=== PATIENT | male | born 1950 | race Caucasian/White ===

== ENCOUNTER 2019-11-22 13:19 | Inpatient (IN) | payer MEDICARE, BC ==
[2019-11-22] VITALS (259 sets, daily range): BP systolic 105–122; BP diastolic 67–691; PULSE 58–88; TEMP 97.6–97.8; O2SAT 70–99
[~2019-11-22] VITALS: Ht 177.8 cm; Wt 60.5 kg
[2019-11-22 13:48] LABS: BASO # 0.1 (0.0-0.2); BASO % 0.6 % (0.0-2.0); EOS # 0.1 (0.0-0.7); EOS % 1.1 % (0-4.0); GRAN % 59.3 % (42.2-75.2); HEMOGLOBIN 12.4 g/dl (13.5-18.0); LYMPH # 2.5 (1.2-3.4); LYMPH % 29.2 % (20.0-51.0); MEAN CELL VOLUME 88 fl (80.0-100.0); MEAN CORPUSCULAR HEMOGLOBIN 30 pg (27.0-31.0); MEAN CORPUSCULAR HGB CONC 34 g/dl (33.0-37.0); MEAN PLATELET VOLUME 10.8 fl (7.4-10.4); MONO # 0.8 (0.1-0.6); MONO % 9.4 % (1.7-9.3); PLATELET COUNT 222 K/mm3 (130-400); RED BLOOD COUNT 4.18 M/mm3 (4.20-5.60); REDCELL DISTRIBUTION WIDTH-CV 13.2 % (11.5-14.5)
[2019-11-22 13:54] LABS: HEMATOCRIT 36.9 % (42.0-52.0)
[2019-11-22 13:58] LABS: ALANINE AMINOTRANSFERASE 41 U/L (4-49); ALBUMIN 4.4 gm/dL (3.5-5.0); ALKALINE PHOSPHATASE 67 U/L (50-136); ANION GAP 8 mmol/L (7-16); AST,SGOT 55 U/L (15-37); BILIRUBIN,TOTAL 1.1 mg/dL (0.0-1.0); BLOOD UREA NITROGEN 8 mg/dL (9-20); C-REACTIVE PROTEIN < 0.5 mg/dL (0.0-0.9); CALCIUM 9.6 mg/dL (8.4-10.2); CARBON DIOXIDE 25 mmol/L (22-30); CHLORIDE 99 mmol/L (98-107); CREATINE KINASE 629 U/L (55-170); CREATININE, serum 0.82 (0.66-1.25); GLUCOSE 102 mg/dL (74-106); PHOSPHOROUS 2.9 mg/dL (2.5-4.5); POTASSIUM 3.8 mmol/L (3.4-5.0); SODIUM 132 mmol/L (137-145); TOTAL PROTEIN 7.1 gm/dL (6.4-8.2)
[2019-11-22] MEDS ORDERED: ZOLOFT 25MG25 MG PO (14:07)
[2019-11-22 14:08] LABS: ERYTHROCYTE SEDIMENTATION RATE 1 mm/hr (0-30)
[2019-11-22] MEDS ORDERED: REMERON45 MG PO (14:08)
[2019-11-22] MEDS ORDERED: NAMENDA5 MG PO (14:09)
[2019-11-22] MEDS ORDERED: NORVASC 10MG10 MG PO (14:09)
[2019-11-22] MEDS ORDERED: KLONOPIN 0.5MG0.5 MG PO (14:10)
[2019-11-22] MEDS ORDERED: ARICEPT 5MG PO (14:10)
[2019-11-22] MEDS ORDERED: MEVACOR 20M20 MG/TAB PO (14:10)
[2019-11-22 15:35] LABS: COLLECTION METHOD CLEAN CATCH
[2019-11-22 15:42] LABS: PH 8 (5-8); SQUAMOUS EPITHELIAL None Seen /hpf; URINE APPEARANCE Clear; URINE BACTERIA None Seen /hpf; URINE BILIRUBIN Negative (NEGATIVE); URINE BLOOD Negative (NEGATIVE); URINE COLOR Straw; URINE GLUCOSE Negative (NEGATIVE); URINE KETONE Negative (NEGATIVE); URINE LEUKOCYTE ESTERASE Negative (NEGATIVE); URINE NITRATE Negative (NEGATIVE); URINE PROTEIN(semi-quant) Negative (NEGATIVE); URINE RBC None Seen /hpf; URINE UROBILINOGEN Negative (NEGATIVE)
[2019-11-22 18:29] LABS: ARTERIAL BLD GAS O2 SATURATION 95.3 % (92-100); ARTERIAL BLD GAS TCO2 CT 23.8; ARTERIAL BLOOD GAS BASE EXCESS -1.8 (-2-2); ARTERIAL BLOOD GAS HCO3 22.7 meq/L (22-26); ARTERIAL BLOOD GAS PCO2 37.6 mmHg (35-45); ARTERIAL BLOOD GAS PO2 79.8 mmHg (80-100)
--- NOTE | 2019-11-22 18:35 | NUR ---
PT TRANSFERRED VIA BED TO ICU ROOM 5 BY MERRILL TURK, CONSULTING SERVICES PROJECT MANAGER, AND MISAEL TURK. AT BEDSIDE. PATIENT LETHARGIC AND AROUSES SLIGHLTY TO PHYSICAL STIMULI.
[2019-11-22] MEDS ORDERED: ZYPREXA2.5 MG PO (18:44)
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
--- NOTE | 2019-11-22 20:54 | NUR ---
Patient woke up very agitated and began getting aggressive with staff. Patient is trying to pull all monitoring equipment off, is being non-compliant. No PRN's can be given at this time. ABHIJIT Ramirez, was called and she gave an order to give 2mg IV haldol and 0.5mg IV ativan, and to call her back if that does not calm patient down.
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
--- NOTE | 2019-11-22 22:00 | NUR ---
ABHIJIT Ramirez at bedside, ordered a bladder scan. RNshruti, bladder scanned patient and it revealed greatewr than 999ml. Called Ashley and she said to place nguyen catheter. After nguyen catheter placed patient fell asleep.
--- NOTE | 2019-11-22 22:15 | NUR ---
2 point soft restraints placed on ankles. Patient trying to move legs out of bed and nguyen catheter needs to be placed. Ashley called and notified.
--- NOTE | 2019-11-22 23:17 | NUR ---
Ashley called for patient having a few low BP's with MAPs in the 60's. IVF were ordered and Ashley said ok to give 500ml bolus.
[2019-11-23] VITALS (472 sets, daily range): BP systolic 82–168; BP diastolic 52–118; PULSE 48–103; TEMP 97.2–97.7; O2SAT 87–100
[2019-11-23] LABS: TRICYCLIC ANTIDEPRESS URINE NEGATIVE
[2019-11-23 05:41] LABS: HSV SOURCE BLOOD (())
[2019-11-23 05:58] LABS: BASO % 0.4 % (0.0-2.0); EOS # 0.1 (0.0-0.7); EOS % 1.1 % (0-4.0); GRAN # 5.2 (1.4-6.5); GRAN % 64.7 % (42.2-75.2); HEMOGLOBIN 12.8 g/dl (13.5-18.0); LYMPH % 25.4 % (20.0-51.0); MEAN CELL VOLUME 89 fl (80.0-100.0); MEAN CORPUSCULAR HEMOGLOBIN 30 pg (27.0-31.0); MEAN CORPUSCULAR HGB CONC 34 g/dl (33.0-37.0); MEAN PLATELET VOLUME 10.7 fl (7.4-10.4); MONO # 0.6 (0.1-0.6); MONO % 8.1 % (1.7-9.3); PLATELET COUNT 193 K/mm3 (130-400); RED BLOOD COUNT 4.26 M/mm3 (4.20-5.60); REDCELL DISTRIBUTION WIDTH-CV 13.4 % (11.5-14.5)
[2019-11-23 06:13] LABS: CALCIUM 8.9 mg/dL (8.4-10.2); CREATININE, serum 0.59 (0.66-1.25); POTASSIUM 3.7 mmol/L (3.4-5.0)
--- NOTE | 2019-11-23 07:00 | NUR ---
Bedside report received from ROSALEE Ortiz. Patient currently sleeping while in 4 point soft restraints. VS WNL. Sitter here with pt. Care take over at this time.
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
--- NOTE | 2019-11-23 10:01 | NUR ---
here to see patient. She is updated on the plan of care. Questions answered as best I can. Dr. Reyez on unit rounding. He will see the patient soon.
--- NOTE | 2019-11-23 10:45 | NUR ---
This RN is now at bedside monitoring patient consistently.
--- NOTE | 2019-11-23 12:25 | NUR ---
DEVI met the patient and the patient's , Marilee to complete initial intake. The patient is confused and is in restraints at this time. The patient lives in [place] with Marilee. The patient does not use DME and is independent with ADLs with Marilee standing by to provide support if needed. The patient's PCP is Dr. Rogers and patient receives medications from [facility]. The patient has DPOA-HC. Marilee provided a copy and it was placed in the chart. The patient is needing geriatric psychiatry unit placement. The families [facility] preference is [facility] in [place] and second is [facility] in [facility]. Referrals sent. DEVI informed Marilee that other referrals would be sent as well. DEVI faxed referrals to [facility] in [place] and [facility]. Awaiting responses. Marilee states that family would rather not send a referral to the [facility] in [place] or [facility] in [place]. Marilee would also like DEVI to keep her son Chito informed. DEVI contacted Zara with [facility]. She states they do not have any male beds at this time but will possibly have a discharge 11/24 and would have a bed available for admission 11/24 or 11/25. DEVI updated Chito and will inform Marilee. Will continue to monitor.
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
--- NOTE | 2019-11-23 14:37 | NUR ---
Xin with [facility] reports they are at capacity at this time. They will possibly have a bed available by the end of the week. [facility] is requiring a negative Covid-19 test to admit the patient. DEVI will continue to follow.
--- NOTE | 2019-11-23 15:30 | NUR ---
Patient's sedation placed on standby at this time due to vital signs and RASS indicating patient is too sedated at this time. ROSALEE Low made aware.
--- NOTE | 2019-11-23 15:49 | NUR ---
Shweta from [facility] in [place] states they can accept the patient on 11/23 as long as the nguyen is taken out and the patient voids at least once on his own. SW informed the family and the team. Will continue to follow.
--- NOTE | 2019-11-23 17:55 | NUR ---
CALL RECEIVED FROM DR. DUKES. UPDATE GIVEN. ORDER RECEIVED TO COMPLETE MRI HEAD WITH AND WITHOUT CONTRAST SOON PATIENT IS PROPERLY SEDATED WITH THE PRECEDEX.
--- NOTE | 2019-11-23 19:45 | NUR ---
Patient goes to MRI with ROSALEE Ortiz at this time.
--- NOTE | 2019-11-23 20:02 | NUR ---
REPORT GIVEN TO ROSALEE BERNAL
--- NOTE | 2019-11-23 22:22 | NUR ---
CALLED , KESHA, TO TALK TO HER ABOUT THE RESULTS FROM THE MRI, IT WAS CLEAN AND SHOWED NO ABNORMALITIES.
[2019-11-24] VITALS (481 sets, daily range): BP systolic 102–155; BP diastolic 58–92; PULSE 49–114; TEMP 97.1–98.8; O2SAT 47–100
[2019-11-24 05:56] LABS: BASO % 0.1 % (0.0-2.0); EOS # 0.2 (0.0-0.7); EOS % 2.2 % (0-4.0); GRAN % 67.1 % (42.2-75.2); HEMATOCRIT 39.8 % (42.0-52.0); HEMOGLOBIN 13.2 g/dl (13.5-18.0); LYMPH # 1.8 (1.2-3.4); MEAN CELL VOLUME 91 fl (80.0-100.0); MEAN CORPUSCULAR HEMOGLOBIN 30 pg (27.0-31.0); MEAN CORPUSCULAR HGB CONC 33 g/dl (33.0-37.0); MEAN PLATELET VOLUME 10.6 fl (7.4-10.4); MONO # 0.5 (0.1-0.6); MONO % 6.5 % (1.7-9.3); PLATELET COUNT 220 K/mm3 (130-400); REDCELL DISTRIBUTION WIDTH-CV 13.2 % (11.5-14.5)
[2019-11-24 06:07] LABS: CALCIUM 9.1 mg/dL (8.4-10.2); CREATININE, serum 0.62 (0.66-1.25); POTASSIUM 4.1 mmol/L (3.4-5.0)
--- NOTE | 2019-11-24 07:48 | NUR ---
Report received from Diana TURK and care resumed. Pt resting at this time but still having intermittent bouts of restlessness, pulling at nguyen during report. Dr Kwon by to see pt. No new orders at this time. Stated pt would still benefit from [facility] once accepted.
--- NOTE | 2019-11-24 10:20 | NUR ---
Dr Reyez in to see pt at this time.
--- NOTE | 2019-11-24 10:46 | NUR ---
Verbal order to stop precedex at this time.
--- NOTE | 2019-11-24 11:47 | NUR ---
Radiologist was called regarding LP orders. Stated would follow up with Dr Reyez.
--- NOTE | 2019-11-24 13:49 | NUR ---
The patient continues to have a nguyen. DEVI contacted [facility] in [place] and [facility] in [facility] and they do take patients that are on nguyen's. Neither of the two have beds this day. Will continue to follow. DEVI faxed updates to [facility], and [facility] Will continue to monitor.
--- NOTE | 2019-11-24 15:07 | NUR ---
Pt continues to have increased agitation despite PRN geodon. Call placed to Dr Reyez. Stated he will review meds adn talk with Dr Mac.
--- NOTE | 2019-11-24 19:26 | NUR ---
Report given to Marva TURK and care transfered.
--- NOTE | 2019-11-24 19:27 | NUR ---
Bedside report received from ROSALEE Ruiz. Patient's linens changed and bedbath given with her assistance. Patient resting quietly. Will continue to monitor. Call light within reach.
--- NOTE | 2019-11-24 20:00 | NUR ---
Patient is awake and restless in the bed. Assessment complete, see shift assessment for details. Patient is constantly trying to pull his mitts and his gown off. He is flipping his legs over the side of the bed and pushing himself down in the bed. Patient is talking incoherently. Precedex drip titrated up with no success. Next titration attempted also with no success. Haldol given and after 10mins he begins to calm down. Patient is awake enough to take pills and swallows water safely. Patient repositioned for comfort and bed alarm and restraints confirmed. Will continue to monitor closely.
[2019-11-25] VITALS (608 sets, daily range): BP systolic 115–147; BP diastolic 64–93; PULSE 52–98; TEMP 97.5–99.4; O2SAT 49–100
--- NOTE | 2019-11-25 | NUR ---
Patient is finally resting after IM geodon given. Patient did not settle down after Haldol was given, Precedex was titrated again. He is now resting comfortably. Will continue to monitor to see if precedex can be titrated down. Assessment complete with no changes from previous exam.
--- NOTE | 2019-11-25 05:23 | NUR ---
Patient is awake and agitated at this time. Patient has broken his catheter stat lock by somehow pulling it apart despite being in mitts and restrained. Patient has kicked off the bedding and has swung his legs over the side of the bed and is actively trying to get out of the bed. He is sitting forward with the only thing keeping him in the bed is this nurse and the restraints. Patient is currently trying to remove mitts by positioning them underneath himself to use his bodyweight as leverage. Had tried to start weaning down the precedex, but have had to increase and give a dose of Haldol. Patient is uncooperative and does not follow commands. Will continue to monitor closely. Bed alarm on. Restraints checked. Mitts still in place.
--- NOTE | 2019-11-25 05:50 | NUR ---
Fady jimenez at this time.
[2019-11-25 06:05] LABS: BASO % 0.4 % (0.0-2.0); EOS # 0.2 (0.0-0.7); EOS % 1.7 % (0-4.0); GRAN # 6.6 (1.4-6.5); GRAN % 71.5 % (42.2-75.2); HEMATOCRIT 39.6 % (42.0-52.0); HEMOGLOBIN 13.2 g/dl (13.5-18.0); LYMPH # 1.8 (1.2-3.4); LYMPH % 19.2 % (20.0-51.0); MEAN CELL VOLUME 89 fl (80.0-100.0); MEAN CORPUSCULAR HEMOGLOBIN 30 pg (27.0-31.0); MEAN CORPUSCULAR HGB CONC 33 g/dl (33.0-37.0); MONO # 0.6 (0.1-0.6); MONO % 6.9 % (1.7-9.3); PLATELET COUNT 216 K/mm3 (130-400); RED BLOOD COUNT 4.43 M/mm3 (4.20-5.60); REDCELL DISTRIBUTION WIDTH-CV 13.3 % (11.5-14.5)
[2019-11-25 06:17] LABS: CALCIUM 9.2 mg/dL (8.4-10.2); CREATININE, serum 0.63 (0.66-1.25); POTASSIUM 3.8 mmol/L (3.4-5.0)
--- NOTE | 2019-11-25 07:16 | NUR ---
Bedside report given to ROSALEE Ruiz.
--- NOTE | 2019-11-25 07:20 | NUR ---
Report received from Marva TURK and care resumed.
--- NOTE | 2019-11-25 07:45 | NUR ---
Dr Mac in to see pt at this time.
--- NOTE | 2019-11-25 11:29 | NUR ---
Dr Kwon and Dr Barlow in to see pt at this time.
--- NOTE | 2019-11-25 11:31 | NUR ---
SW attended clinical rounds with the team. Dr. Kwon was discussing the patient's medications with the patient's , Marilee. Then Dr. Barlow discussed the course of care with Marilee. Will continue to follow.
--- NOTE | 2019-11-25 14:07 | NUR ---
Law Firm Consultant received a call from Xin at [facility]. Xin advised that they are still at capacity but they may have availability next week. SW to continue to follow.
--- NOTE | 2019-11-25 17:03 | NUR ---
Messenger Copy faxed updates to [facility], [facility], and [facility] to continue to follow.
--- NOTE | 2019-11-25 19:23 | NUR ---
Report given to Diana TURK and care transfered.
--- NOTE | 2019-11-25 20:00 | NUR ---
Patient beginning to get restless and trying to get out of bed. PRN iv haldol given.
--- NOTE | 2019-11-25 20:30 | NUR ---
Patient is still restless and tring to get out of bed and pulling on things. PRN geodon given and as well as his scheduled seroquel. RN remaining at bedside until patient is a RASS of 0.
[2019-11-26] VITALS (357 sets, daily range): BP systolic 136–162; BP diastolic 77–97; PULSE 63–100; TEMP 97.4–98.7; O2SAT 94–100
--- NOTE | 2019-11-26 03:30 | NUR ---
Patient is very restless, trying to get up and out of bed. Gave PRN ativan and plan to titrate precedex gtt down afterwards.
[2019-11-26 06:00] LABS: BASO % 0.3 % (0.0-2.0); EOS # 0.2 (0.0-0.7); EOS % 1.7 % (0-4.0); GRAN # 6.9 (1.4-6.5); GRAN % 71.5 % (42.2-75.2); LYMPH # 1.7 (1.2-3.4); LYMPH % 17.8 % (20.0-51.0); MEAN CELL VOLUME 88 fl (80.0-100.0); MEAN CORPUSCULAR HEMOGLOBIN 30 pg (27.0-31.0); MEAN CORPUSCULAR HGB CONC 33 g/dl (33.0-37.0); MEAN PLATELET VOLUME 10.9 fl (7.4-10.4); MONO # 0.8 (0.1-0.6); MONO % 8.4 % (1.7-9.3); PLATELET COUNT 220 K/mm3 (130-400); RED BLOOD COUNT 4.41 M/mm3 (4.20-5.60); REDCELL DISTRIBUTION WIDTH-CV 13.2 % (11.5-14.5)
[2019-11-26 06:12] LABS: CALCIUM 9.3 mg/dL (8.4-10.2); CREATININE, serum 0.6 (0.66-1.25); POTASSIUM 3.9 mmol/L (3.4-5.0)
--- NOTE | 2019-11-26 06:13 | NUR ---
Shrestha cather remover per order. Patient tolerated well. Will bladder scan in 4 hours if no UOP by then.
--- NOTE | 2019-11-26 08:00 | NUR ---
Shift reassessment complete at this time. Unable to review plan of care with Pt r/t confusion. Additional time taken to address any other immediate Pt needs. Vitals stable at this time. CPOT score 0 with no overt signs of pain noted. Bed in low position, call light within reach, will continue to monitor.
--- NOTE | 2019-11-26 09:43 | NUR ---
320 mls of urine noted on bladder scan. Pt has stated he has not needed to void yet at this time. Will continue to bladder scan and toilet schedule Pt to assess for s/s of retention.
[2019-11-26 11:35] LABS: TOTAL PROTEIN,CSF 53 mg/dL (15-45)
--- NOTE | 2019-11-26 11:55 | NUR ---
Pt resting comfortably et calmly in bed. Easily redirected and not attempted to leave bed nor displaying signs of aggressivness or agitation. Vitals stable at this time. at bedside and updated on plan of care. Bed in low position, call light within reach, will continue to monitor.
--- NOTE | 2019-11-26 12:31 | NUR ---
DEVI contacted Jazmine at [facility] in [place]. They do not have a bed available this day. DEVI contacted [facility] and they are reviewing the referral. DEVI contacted [facility]. DEVI faxed updates to these facilities. Will continue to follow
[2019-11-26 13:15] LABS: CSF APPEARANCE CLEAR; CSF COLOR COLORLESS; CSF MONONUCLEAR 0 % (70-100); CSF POLYMORPHONUCLEAR 0 % (0-6); CSF RBC 16 /mm3 (0-0)
--- NOTE | 2019-11-26 14:09 | NUR ---
Shweta from [facility] contacted DEVI. Due to have several admissions at their facility this day they will be able to take the patient on 11/26. DEVI informed the team and the patient's family. Will continue to follow.
[2019-11-27] VITALS (8 sets, daily range): BP systolic 120–178; BP diastolic 50–107; PULSE 70–118; TEMP 97.6–100.4
[2019-11-27 01:43] LABS: COLLECTION METHOD CLEAN CATCH
[2019-11-27 01:50] LABS: PH 6 (5-8); SQUAMOUS EPITHELIAL None Seen /hpf; URINE APPEARANCE Clear; URINE BACTERIA None Seen /hpf; URINE BILIRUBIN Negative (NEGATIVE); URINE BLOOD Negative (NEGATIVE); URINE COLOR Yellow; URINE GLUCOSE Negative (NEGATIVE); URINE KETONE 2+ (NEGATIVE); URINE LEUKOCYTE ESTERASE Negative (NEGATIVE); URINE NITRATE Negative (NEGATIVE); URINE PROTEIN(semi-quant) Negative (NEGATIVE); URINE RBC None Seen /hpf; URINE UROBILINOGEN Negative (NEGATIVE); URINE WBC 0-2 /hpf
--- NOTE | 2019-11-27 03:50 | NUR ---
Patient transferred to the floor at about 1945 from ICU. Patient noted to be lethargic during transfer. Mitts to hands. PICC line to JON and INT to left forearm. Patient became fidgety and was pulling at his gloves. Telemetry called and stated patient had a run of PAT that lasted about 4 seconds and his heart rate topped out at 180. Blood pressure 169/107 and temperature noted to be 100.4. KENNETH Stanford notified and orders were received. PRN hydralazine and rectal tylenol given. Repeat BP: 149/50, T: 97.6. Bladder scan completed and noted to have >750ml of urine in his bladder. Order received to straight cath and at 0530 bladder scan again and if over 600ml, then to place a nguyen catheter. Urine obtained durine straight cath. Patient continued to become agitated and started pulling at things and swinging his arms around. IV Ativan given. This was effective and patient is now calm and sleeping. Will continue to monitor.
[2019-11-27 06:42] LABS: BASO % 0.3 % (0.0-2.0); EOS % 0.2 % (0-4.0); GRAN # 10.6 (1.4-6.5); HEMATOCRIT 40.6 % (42.0-52.0); HEMOGLOBIN 13.7 g/dl (13.5-18.0); LYMPH # 1.5 (1.2-3.4); LYMPH % 11.1 % (20.0-51.0); MEAN CELL VOLUME 88 fl (80.0-100.0); MEAN CORPUSCULAR HEMOGLOBIN 30 pg (27.0-31.0); MEAN CORPUSCULAR HGB CONC 34 g/dl (33.0-37.0); MEAN PLATELET VOLUME 10.8 fl (7.4-10.4); MONO # 1.1 (0.1-0.6); MONO % 8.1 % (1.7-9.3); PLATELET COUNT 238 K/mm3 (130-400); RED BLOOD COUNT 4.61 M/mm3 (4.20-5.60); REDCELL DISTRIBUTION WIDTH-CV 13.6 % (11.5-14.5)
[2019-11-27 06:54] LABS: ALBUMIN 4.2 gm/dL (3.5-5.0); CALCIUM 9.6 mg/dL (8.4-10.2); CREATININE, serum 0.61 (0.66-1.25); POTASSIUM 3.9 mmol/L (3.4-5.0); TOTAL PROTEIN 7.3 gm/dL (6.4-8.2)
--- NOTE | 2019-11-27 09:30 | NUR ---
Patient sleeping soundly at this time. Unable to awaken patient enough to safely swallow PO medications, will hold and attempt to administer later. at bedside, informed that patient has had trouble voiding since catheter removal and patient was straight cathed overnight. Patient's states that she will attempt to get him to void if he wakes enough. Patient gives no indications of pain, call light within reach, bed alarm on.
[2019-11-27 11:21] LABS: HSV 2 DNA PCR QUAL Not Detected (())
--- NOTE | 2019-11-27 17:08 | NUR ---
Hide Selector faxed updates to [facility], [facility], and [facility]. [facility] and [facility] cannot accept today. Chantell at [facility] advised that they cannot accept until patient goes 24 hours voiding without catheter. DEVI provided update to Hospitalist, patient's Marilee, and patient's son Chito. SW will continue to follow.
--- NOTE | 2019-11-27 19:06 | NUR ---
Patient has been sleeping for the entirety of the shift, have been unable to get patient to awaken in order to administer medications or get patient to eat or drink. Nguyen catheter placed per hospitalist order after bladder scan showed more than 600 ml in bladder. Nguyen was placed via sterile procedure, patient did not rouse during the procedure. Approximately 600 ml of clear yellow urine returned upon insertion of nguyen. Patient continues to rest with no indications of discomfort. Call light within reach, bed alarm on.
[2019-11-28 04:04] VITALS: BP 113/61; PULSE 89; TEMP 97.4
--- NOTE | 2019-11-28 05:05 | NUR ---
Patient noted to be a lot more alert this shift, than previous shift. Patient not oriented and states he was discharged from the hospital the other day. Shrestha catheter continues to drain sonny, clear urine. Patient continues to wear mitts, d/t confusion. Not combative this shift. Patient able to move around in the bed independently. Bed bath completed by staff this shift. No PRN medication required for patient this shift. Patient was able to sleep well throughout the night. No indications of pain noted. Will continue to monitor.
--- NOTE | 2019-11-28 08:00 | NUR ---
Drowsy. Sits up in bed. Voice is quiet. Disoriented. No complaints.
[2019-11-28 08:50] VITALS: BP 113/38; BP 146/84; PULSE 70; PULSE 76; TEMP 97.8; TEMP 99.3
--- NOTE | 2019-11-28 13:00 | NUR ---
Patient drank bottle of Ensure slowly. Spouse assisted patient. Patient returned to sleep.
[2019-11-28 13:45] VITALS: BP 132/80; PULSE 99; TEMP 98.6
[2019-11-28 15:09] LABS: ALBUMIN 3.9 gm/dL (3.5-5.0); BASO % 0.3 % (0.0-2.0); BILIRUBIN,TOTAL 1.9 mg/dL (0.0-1.0); CALCIUM 9.2 mg/dL (8.4-10.2); CREATININE, serum 0.71 (0.66-1.25); EOS % 0.3 % (0-4.0); GRAN # 7.3 (1.4-6.5); GRAN % 75.5 % (42.2-75.2); HEMATOCRIT 39.8 % (42.0-52.0); HEMOGLOBIN 13.1 g/dl (13.5-18.0); LYMPH # 1.5 (1.2-3.4); LYMPH % 15.5 % (20.0-51.0); MEAN CELL VOLUME 89 fl (80.0-100.0); MEAN CORPUSCULAR HEMOGLOBIN 29 pg (27.0-31.0); MEAN CORPUSCULAR HGB CONC 33 g/dl (33.0-37.0); MEAN PLATELET VOLUME 10.9 fl (7.4-10.4); MONO # 0.8 (0.1-0.6); MONO % 8.1 % (1.7-9.3); PLATELET COUNT 240 K/mm3 (130-400); POTASSIUM 3.8 mmol/L (3.4-5.0); RED BLOOD COUNT 4.46 M/mm3 (4.20-5.60); REDCELL DISTRIBUTION WIDTH-CV 13.6 % (11.5-14.5); TOTAL PROTEIN 6.9 gm/dL (6.4-8.2)
[2019-11-28 16:03] VITALS: BP 123/68; PULSE 98; TEMP 97.7
--- NOTE | 2019-11-28 18:00 | NUR ---
Afebrile. Resting quietly in bed with confused conversation.
[2019-11-28 19:27] VITALS: BP 132/85; PULSE 91; TEMP 97.6
--- NOTE | 2019-11-28 21:40 | NUR ---
PT IN BED, DOES NOT OPEN EYES WHEN SPOKEN TOO, BUT DOES ANSWER YES/NO WHEN ASKED. UNABLE TO HAVE AN ORIENTED CONVERSATION WITH PATIENT, DOES KNOW WHO HE IS AND HIS BIRTHDAY. HAS MITTS ON BILATERALLY FOR PROTECTION OF PICC LINE AND BENOIT CATHETER. TAKES HS MEDS WITHOUT PROBLEM. DRANK 50% OF ENSURE. OPENS EYES EVENTUALLY WHEN STAFF IN ROOM. BENOIT WITH DARK YELLOW URINE DRAINING, CATH CARE PROVIDED. PICC TO RIGHT UPPER ARM FLUSHED WELL. DOES NOT EXHIBIT ANY AGGRESSIVE BEHAVIORS AT THIS TIME.
--- NOTE | 2019-11-28 23:57 | NUR ---
Pt awake, has legs over side of bed, states "I'm getting out of here". Assisted with repositioning back in the bed. Pt hits bedrail with his mitted hand. Turned lights out for comfort and reset bed alarm.
[2019-11-29 00:21] VITALS: BP 102/63; PULSE 95; TEMP 97.7
[2019-11-29 03:46] VITALS: BP 104/62; PULSE 93; TEMP 99
--- NOTE | 2019-11-29 04:00 | NUR ---
Pt repositions self in bed. Has turned over onto his stomach. Both mitts remain on. Shrestha patent.
--- NOTE | 2019-11-29 05:20 | NUR ---
PT STANDING AT BEDSIDE, REFUSES TO LAY DOWN, THREATENS STAFF WITH HITTING THEM. WANTS TO WALK TO THE HIGHWAY. UNSTEADY ON HIS FEET. TRIES TO REMOVE MITTS.
--- NOTE | 2019-11-29 05:40 | NUR ---
MEMO 20MG IM LVG. ASSISTED PT TO LAYING DOWN. BED ALARM ON.
[2019-11-29 06:21] LABS: BASO % 0.5 % (0.0-2.0); EOS # 0.1 (0.0-0.7); EOS % 1.6 % (0-4.0); GRAN # 5.3 (1.4-6.5); GRAN % 59.6 % (42.2-75.2); HEMATOCRIT 39.3 % (42.0-52.0); HEMOGLOBIN 13.2 g/dl (13.5-18.0); LYMPH # 2.4 (1.2-3.4); LYMPH % 27.1 % (20.0-51.0); MEAN CELL VOLUME 89 fl (80.0-100.0); MEAN CORPUSCULAR HEMOGLOBIN 30 pg (27.0-31.0); MEAN CORPUSCULAR HGB CONC 34 g/dl (33.0-37.0); MEAN PLATELET VOLUME 11.5 fl (7.4-10.4); PLATELET COUNT 183 K/mm3 (130-400); RED BLOOD COUNT 4.42 M/mm3 (4.20-5.60); REDCELL DISTRIBUTION WIDTH-CV 13.5 % (11.5-14.5)
[2019-11-29 06:24] LABS: BILIRUBIN,TOTAL 1.7 mg/dL (0.0-1.0); CALCIUM 9.6 mg/dL (8.4-10.2); CREATININE, serum 0.72 (0.66-1.25); POTASSIUM 3.7 mmol/L (3.4-5.0)
--- NOTE | 2019-11-29 07:10 | NUR ---
Trying to get out of bed. Confused. Ativan given. Bed alarm on.
[2019-11-29 07:40] VITALS: BP 151/92; PULSE 89; TEMP 97.4
--- NOTE | 2019-11-29 09:00 | NUR ---
Ambulatory to bathroom for bowel movement. Returned to chair. Taking fluids with encouragement. Spouse here.
[2019-11-29 11:41] VITALS: BP 130/74; PULSE 87; TEMP 97.2
--- NOTE | 2019-11-29 13:33 | NUR ---
SW contacted by patients nurse, nurse inquired about release of patient and informed SW that his catheter had just been removed. SW reviewed 10/27/2019 notes with nurse still on the phone which indicated that [facility] and [facility] could not accept Pt on %/%. The note indicated that [facility] could not accept patient until he was without a catheter for 24 hours, without accidents. Sw informed nurse. SW will continue to follow.
--- NOTE | 2019-11-29 15:00 | NUR ---
Tylenol given for c/o back pain. Sitting up in recliner chair. Spouse here.
[2019-11-29 15:48] VITALS: BP 121/65; PULSE 82; TEMP 98
--- NOTE | 2019-11-29 18:00 | NUR ---
Sleeping in recliner. Chair alarm on.
--- NOTE | 2019-11-29 19:46 | NUR ---
Pt assisted to bathroom, no void, gait unsteady, use of gait belt. Pt is confused, impulsive but alert. Does not know where he is or date of today. PICC to right upper arm flushed well. Picking at unseen things. Chair alarm on, takes meds in ice cream. Dinner tray in front of him.
[2019-11-29 20:57] VITALS: BP 115/83; PULSE 94; TEMP 98.4
--- NOTE | 2019-11-29 23:00 | NUR ---
PT ATE 2 ICE CREAMS BY HIMSELF. SLEEPY. RECLINED IN RECLINER AT BEDSIDE. CHAIR ALARM ON.
[2019-11-30 00:08] VITALS: BP 125/69; PULSE 74; TEMP 98.2
[2019-11-30 04:02] VITALS: BP 120/72; PULSE 71; TEMP 97.7
--- NOTE | 2019-11-30 04:44 | NUR ---
HAS NOT VOIDED, HAS >493CC IN HIS BLADDER PER BLADDER SCAN.
--- NOTE | 2019-11-30 05:02 | NUR ---
INSERTED #16FR BENOIT CATHETER PLACED TO BSD. PT TOLERATED WITHOUT PROBLEM. RETURN OF CLEAR CHANDLER URINE.
--- NOTE | 2019-11-30 06:56 | NUR ---
Pt has drank 2 ensure shakes and cranberry juice this AM.
[2019-11-30 09:18] VITALS: BP 135/65; PULSE 80; TEMP 97.9
[2019-11-30 11:45] VITALS: BP 139/71; PULSE 83; TEMP 98.2
--- NOTE | 2019-11-30 12:58 | NUR ---
The patient had a nguyen catheter placed again this weekend. Luz, at [facility], reports that they do not have any beds available today. She states that she will not know if they will have a bed open up until later tomorrow. Zara, at [facility], reports that they do have beds available today and will have their clinical team review if they can take the patient. SW updated the patient's and son. SW to continue to follow.
[2019-11-30 16:02] VITALS: BP 130/79; PULSE 79; TEMP 98.4
--- NOTE | 2019-11-30 16:25 | NUR ---
DEVI contacted Zara at [facility] to follow up. Zara reports that they have not yet been able to talk to the doctors today on whether they would be able to accept. She states that they will be talking to the doctors later this afternoon or tomorrow morning. DEVI updated the patient's and son. SW to continue to follow.
--- NOTE | 2019-11-30 19:00 | NUR ---
Patients was here most the day and was able to help with him. Patient has been very confused since she left and keeps trying to get up or pull at his cords. Patient says no when asked if having pain. He otherwise is not able to answer questions or have a conversation. No other changes at this time. Chair alarm on.
--- NOTE | 2019-11-30 19:45 | NUR ---
Received report from ROSALEE Troncoso. Pt sitting up in the chair at this time.Pt has his call light within reach and he had a chair alarm on at this time. Pt did appear very confused but was sitting quietly in his chair drinking his Ensure.
[2019-11-30 20:17] VITALS: BP 152/95; PULSE 88; TEMP 98.4
--- NOTE | 2019-11-30 22:00 | NUR ---
Pt was very confused for a while. Pt tried to exit the bed frequently. Pt was helped back up in bed serveral times. Pt was given Ativan by nurse ROSALEE Diggs. Pt took medication with applesauce at this time. Pt did calm down after this dose of medication. Pt was given a warm blanket and he went to sleep shortly after. Pt has his call light within reach, his bed is in lowest position and his alarm is on at this time.
[2019-12-01 00:25] VITALS: BP 149/75; PULSE 81; TEMP 97.6
[2019-12-01 03:59] VITALS: BP 115/69; PULSE 83; TEMP 98.2
--- NOTE | 2019-12-01 07:04 | NUR ---
Reported off to ROSALEE Taylor. Pt is currently lying in bed sleeping. Pt bed is in lowest positon and his bed alarm is on at this time.
--- NOTE | 2019-12-01 08:00 | NUR ---
Patient has been sleeping this morning. Patient attempted to get out of bed unassisted and is confused per baseline. Patient was cooperative with redirection and cares. Shrestha remains in place per order and is draining clear yellow urine. Telemetry in place. Chair alarm on, patient is observable from desk.
[2019-12-01 08:09] VITALS: BP 149/81; PULSE 96; TEMP 99.1
[2019-12-01 11:10] VITALS: BP 134/73; PULSE 79; TEMP 98
--- NOTE | 2019-12-01 11:41 | NUR ---
The patient is to have a TURP tomorrow, 11/30. The hospitalist reports that the patient would then be tentatively able to discharge or Saturday. DEVI notified Batsheva at [facility]. Batsheva requests updates tomorrow. DEVI attempted to contact and update [facility] and [facility]. DEVI left them voicemails. DEVI updated the patient's and son. DEVI to continue to follow.
--- NOTE | 2019-12-01 12:06 | NUR ---
Batsheva from [facility] contacted . She reports they still do not have a bed available at this time. Will continue to monitor.
--- NOTE | 2019-12-01 12:20 | NUR ---
PICC intact right upper arm. With sterile technique right upper arm PICC dressing change done with insertion site cleansed with ChloraPrep 1, chlorhexidine impregnated disc applied, skin prep, StatLock, and Tegaderm applied. No signs or symptoms of IV complications noted. No concerns voiced. Arm wrapped with Reo to protect catheter.
[2019-12-01 16:12] VITALS: BP 130/77; PULSE 67; TEMP 98.1
--- NOTE | 2019-12-01 16:42 | NUR ---
Zara, at [facility], contacted SW back and requests updates tomorrow after the TURP. DEVI to continue to follow.
--- NOTE | 2019-12-01 16:44 | NUR ---
Shweta, at [facility], returned DEVI's phone call. DEVI updated Shweta. Shweta reports that the patient would still need to be able to void on his own. She states that she will follow back up with DEVI on . DEVI to continue to follow.
--- NOTE | 2019-12-01 18:43 | NUR ---
Patient resting in bedside recliner at this time. Patient is alert but confused per baseline. Patient has been plesent and cooperative with redirection. Shrestha and telemetry in place per order. Chair alarm in place
[2019-12-01 19:58] VITALS: BP 135/64; PULSE 78; TEMP 98.3
[2019-12-02] VITALS (11 sets, daily range): BP systolic 92–154; BP diastolic 40–90; PULSE 63–114; TEMP 97.6–98.2
--- NOTE | 2019-12-02 05:07 | NUR ---
Patient had uneventful night. Patient rested in bed all night. NPO for procudure. No complaints of pain or nausea.
[2019-12-02 07:12] LABS: ALBUMIN 3.9 gm/dL (3.5-5.0); BILIRUBIN,TOTAL 1.1 mg/dL (0.0-1.0); CALCIUM 9.7 mg/dL (8.4-10.2); CREATININE, serum 0.64 (0.66-1.25); POTASSIUM 3.8 mmol/L (3.4-5.0)
--- NOTE | 2019-12-02 08:17 | NUR ---
Patient attempted to get up unassisted during shift change. Patient became very agitated when staff attempted to redirect him and struck or attempted to strike several staff members. Attempted to administer scheduled PO seroquel early and patient refused to take it. casino shift manager charge nurse administered PRN IM geodon, patient had not responded after 30 minutes of administration. Patient ambulated in hallway with x2-3 assist and attempted to enter several occupied patient rooms. Patient persistently attmepted to pull out his nguyen, no blood is currently observable in urine. Recieved order from hospitalist CUATE for a PRN dose of IV ativan, administered per order. Patient is still restless and agitated but less combative than he has been over the last hour. There are currently two staff members with the patient, will continue to closely monitor.
--- NOTE | 2019-12-02 13:38 | NUR ---
The patient is to have a TURP today. DEVI contacted and faxed updates to [facility], and [facility]. Batsheva, at [facility], reports that they may have a bed available tomorrow and will let DEVI know she hears more from their doctors. SW to continue to follow.
--- NOTE | 2019-12-02 14:38 | NUR ---
Patient has been much more cooperative since last PRN dose of ativan. Patient's at bedside. Patient remains alert and confused per baseline, he gives no indication of pain or agitation. Patient left floor with periop nurse at approximately 1424.
--- NOTE | 2019-12-02 15:05 | NUR ---
DEVI received a phone call from Xin at [facility]. Xin reports that she still had the patient on their wait list and that a bed will opening up tomorrow. Xin requested updates. She states that they would require a COVID test. DEVI faxed updates to Xin. DEVI to continue to follow.
--- NOTE | 2019-12-02 17:15 | NUR ---
Patient arrived to floor from PACU via bed. CBI running, urine is light pink and clear. Patient is alert and confused per baseline. Post op checks initiated. Patient's at bedside. Patient is tolerating PO intake very well, ate 100% of his dinner tray. Informed that we had snacks on the floor if he was still hungry. Patient is observable from nurses' station and bed alarm is on.
--- NOTE | 2019-12-03 03:24 | NUR ---
Patient very confused this shift. Noted to be pleasant at the beginning of the shift, but slowly started to become agitated. Constantly pulling at catheter and at one point had unhooked the drainage bag from the 3 way port. Mitts placed on patient to protect nguyen. Patient pulls and attempts to remove them constantly. Noted to hallucinate and attempt to twist things off and on his bed stating he is working on the bathroom. Patient was up on all fours "working on the bathroom" when this nurse administered PRN PO Ativan. This was noted to be uneffective. Patient then became combative and attempted to hit staff. PRN Geodon was administered. At this time patient did not attempt to get out of bed, but was still very restless. Patient again attempted to hit staff as we changed his bed. PRN IV Ativan administered. Patient noted to be drowsy, but does not fall asleep. Continues to pull at mitts. CBI running at a moderate pace. Urine draining fraire red urine. Patient has needed blood cleaned off his shan-area multiple times throughout the shift, d/t him pulling at catheter. Will continue to monitor patient.
[2019-12-03 04:16] VITALS: BP 142/72; PULSE 125; TEMP 97.7
--- NOTE | 2019-12-03 05:49 | NUR ---
pt combative during EKG, even with assistance of two other RNs.
[2019-12-03 07:37] VITALS: BP 125/86; PULSE 79; TEMP 98.1
--- NOTE | 2019-12-03 07:38 | NUR ---
Patient was agitated during and after shift change. Patient was kneeling on hands and knees in the bed and attempting to disconnect his catheter. Patient was repositioned, incontent care provided for an incontinent bowel movement, and patient moved to recliner. Administered PRN ativan dose per order. CBI remains in place, urine is bloody with small clots Patient is currently resting in bedside recliner, remains agitated but is not combative. Chair alarm on, patient is visible from desk, will continue to closely monitor.
--- NOTE | 2019-12-03 11:59 | NUR ---
Patient currently resting in bed, at bedside. Patient is still agitated but not combative and not as persistently attempting to get up unassisted. Patient has continued to refuse PO medications, will attempt to give them to him later in the morning. CBI continues per order. CBI is running fast but urine is pink and clear, no clots, have not needed to irrigate. Patient has been incontinent of stool twice this morning, provided incontinent care and catheter care as required. Patient is currently resting and calm, denies needs, bed alarm on, frequent monitoring continues.
--- NOTE | 2019-12-03 14:54 | NUR ---
The patient had a cystoscopy today and is not yet ready to discharge. DEVI contacted and faxed updates to [facility], [facility], [facility], and [facility]. Batsheva, at [facility], reports that she is not sure if they will have a bed tomorrow, but possibly Saturday. Xin, at [facility], reports that they will have to fill the bed they have today, but will keep the patient on their list. Gifty, at [facility], reports that she will want additional updates when ready to discharge; which will determine if they can take. SW to continue to follow.
[2019-12-03 17:16] VITALS: BP 144/70; PULSE 105; TEMP 98.2
[2019-12-03 19:39] VITALS: BP 149/90; PULSE 116; TEMP 97.9
[2019-12-04 04:34] VITALS: BP 138/82; PULSE 98; TEMP 97.5
[2019-12-04 07:40] LABS: BASO # 0.1 (0.0-0.2); BASO % 0.5 % (0.0-2.0); EOS # 0.1 (0.0-0.7); EOS % 0.4 % (0-4.0); GRAN # 10.6 (1.4-6.5); GRAN % 71.9 % (42.2-75.2); HEMOGLOBIN 10.2 g/dl (13.5-18.0); LYMPH # 2.8 (1.2-3.4); LYMPH % 19.3 % (20.0-51.0); MEAN CELL VOLUME 92 fl (80.0-100.0); MEAN CORPUSCULAR HEMOGLOBIN 30 pg (27.0-31.0); MEAN CORPUSCULAR HGB CONC 33 g/dl (33.0-37.0); MEAN PLATELET VOLUME 11.8 fl (7.4-10.4); MONO # 1.1 (0.1-0.6); MONO % 7.6 % (1.7-9.3); PLATELET COUNT 268 K/mm3 (130-400); RED BLOOD COUNT 3.36 M/mm3 (4.20-5.60); REDCELL DISTRIBUTION WIDTH-CV 13.2 % (11.5-14.5)
[2019-12-04 08:00] LABS: CALCIUM 9.2 mg/dL (8.4-10.2); CREATININE, serum 0.84 (0.66-1.25); POTASSIUM 3.8 mmol/L (3.4-5.0)
[2019-12-04 08:36] VITALS: BP 108/67; PULSE 70; TEMP 97.9
[2019-12-04 17:25] VITALS: BP 115/73; PULSE 101; TEMP 98.6
[2019-12-04 19:55] VITALS: BP 119/83; PULSE 103; TEMP 98
--- NOTE | 2019-12-04 19:56 | NUR ---
Patient resting in bed. Patient slept most of the morning. His was present throughout the day. She assisted with cares. She assisted with feeding patient. She was very attentive & kind. Patient high fall risk & protocol followed. He was restless at times. Tried to have patient stand, but he did not follow directions well. His nguyen was removed per Dr. Mcintosh. Tele was also DC. Mitts now off. Less aggitation for patient. Patient seems to lay on his side of his stomach for comfort. Picc to MARIANO. Tried to avoid ativan today to see if patient would be more awake. Report to night nurse
[2019-12-04 23:15] VITALS: BP 141/97; PULSE 102; TEMP 98.6
--- NOTE | 2019-12-05 01:30 | NUR ---
Pt was incontinent of urine at this time. Pt was cleaned up and given a bed bath at this time. Pt was also bladder scanned at this time. Pt was at 920 in his bladder. When given shift report he was at 1100. This was reported by ROSALEE Moura. Pt is currently lying in bed at this time and warm blankets were given at this time.
[2019-12-05 03:53] VITALS: BP 130/49; PULSE 84; TEMP 98.7
--- NOTE | 2019-12-05 04:20 | NUR ---
Patient noted to be restless tonight after left bedside. PRN Ativan given x3 with no relief. Patient continues to attempt to push himself up and over the side of the bed. Bed alarm on and this nurse sat with patient frequently for safety. Minimal urine output to brief this shift. Bladder scan at 0330 was 700ml. It was reported to this nurse that Dr. Mcintosh was okay with urine up to 1500ml in his bladder. Will rebladder scan soon. Patient is alert to self only, and does not answer questions. Will continue to monitor.
[2019-12-05 08:40] VITALS: BP 133/95; PULSE 96; TEMP 98.2
[2019-12-05 08:41] LABS: BASO # 0.1 (0.0-0.2); BASO % 0.5 % (0.0-2.0); EOS # 0.1 (0.0-0.7); EOS % 0.8 % (0-4.0); GRAN # 11.3 (1.4-6.5); GRAN % 75.4 % (42.2-75.2); HEMOGLOBIN 10.5 g/dl (13.5-18.0); LYMPH # 2.3 (1.2-3.4); LYMPH % 15.4 % (20.0-51.0); MEAN CELL VOLUME 90 fl (80.0-100.0); MEAN CORPUSCULAR HEMOGLOBIN 29 pg (27.0-31.0); MEAN CORPUSCULAR HGB CONC 33 g/dl (33.0-37.0); MEAN PLATELET VOLUME 11.2 fl (7.4-10.4); MONO # 1.1 (0.1-0.6); MONO % 7.5 % (1.7-9.3); PLATELET COUNT 277 K/mm3 (130-400); RED BLOOD COUNT 3.58 M/mm3 (4.20-5.60); REDCELL DISTRIBUTION WIDTH-CV 12.9 % (11.5-14.5)
[2019-12-05 08:49] LABS: HEMATOCRIT 32.2 % (42.0-52.0)
[2019-12-05 12:17] VITALS: BP 100/66; PULSE 74; TEMP 98.2
[2019-12-05 17:01] VITALS: BP 118/60; PULSE 78; TEMP 98
--- NOTE | 2019-12-05 18:00 | NUR ---
Lethargic this shift. Able to take po meds in applesauce and drink some liquids with assistance. Incontinent of urine and small amount blood once this shift. Has not needed prn meds. Dr. Mcintosh saw patient and talked with patient's spouse.
--- NOTE | 2019-12-05 20:00 | NUR ---
Received report from ROSALEE Moura. Pt currently lying in bed sleeping. Pt did respond when doing shift report but looked very sleepy.
[2019-12-05 20:03] VITALS: BP 159/80; PULSE 95; TEMP 98
--- NOTE | 2019-12-05 22:00 | NUR ---
Pt has been trying to get out of bed. Pt has been trying to sit up in bed. Pt has been pulling at his gown and trying to sit up in bed. His alarm has gone off serval times due to trying to exit his bed. With the assistance of a nurse pt was helped to stand and try to urinate. Pt has also helped back in bed and warm blankets was provided at this time. Pt bed is in lowest position and alarm is on at this time. Pt was able to take evening medications with applesauce and he was able to drink a little of his ensure afterwards.
[2019-12-05 22:54] VITALS: BP 115/82; PULSE 108; TEMP 98
--- NOTE | 2019-12-05 23:45 | NUR ---
Pt has been trying to get out of bed. ROSALEE Stroud asked if it was ok to given the pt ativan at this time. Pt was given ativan by ROSALEE Stroud. Pt is currently lying in bed with the bed in lowest position and his alarm is on.
--- NOTE | 2019-12-06 04:00 | NUR ---
Pt has been trying to get out of bed. Pt was assisted with trying to use the urinal at this time. Pt did not void at this time. Pt has been up in the bed in his knees. Pt has helped up in bed and he is lying on his left side. His bed is in lowest position and his alarm is on .
[2019-12-06 04:11] VITALS: BP 132/83; PULSE 105; TEMP 97.7
--- NOTE | 2019-12-06 05:20 | NUR ---
Pt was incontinent of BM at this time. Pt linens were changed and he was cleaned up using personal cleansing wipes. Pt bed is lowest position. I'm currently sitting at pt bedside because he is trying to get out of bed.
--- NOTE | 2019-12-06 06:30 | NUR ---
Pt. found crawling on the floor unaware if pt. fell from the bed or crawled out of the bed. Pt. assessed for injuries and vitals taken. VSS, no injuries noted. Pt. assisted to the chair and soiled linen changed then pt. assisted to the bed. SLATE ROOFER sitting at bedside with pt. at this time. Dr. Guzman and warehouse pricing and inventory clerk notified.
--- NOTE | 2019-12-06 06:30 | NUR ---
Received a call that pt was found on the floor. Pt vitals were taken at this time. Pt was cleaned up and new linens were provided at this time. Pt was incontinent of urine at this time. Pt is currently back in bed and MAINTENANCE TEAM MEMBER is at bedside. Charge nurse Maximus, contacted mix house tender and Dr. Guzman and they were informed about the pt found on the floor.
[2019-12-06 06:56] VITALS: BP 122/80; PULSE 111
--- NOTE | 2019-12-06 07:45 | NUR ---
Reported off to ROSALEE Moura. Pt is currently in bed and PITCH GATHERER is at bedside. Pt has no signs of injury at this time. ROSALEE Moura was informed about pt found on the floor and vitals were within normal limits and no sign of injury was noted at the time of the fall.
--- NOTE | 2019-12-06 07:50 | NUR ---
Medicated with Ativan. Very restless. Gets up on hands and knees in bed. PALLIATIVE SENIOR NP sitting at bedside.
--- NOTE | 2019-12-06 10:00 | NUR ---
Laying in recliner chair. Spouse at bedside. Patient says a few words. Able to take po meds in food. Took several sips of fluids. Returned to bed with physical therapist.
[2019-12-06 12:36] VITALS: BP 164/66; PULSE 100; TEMP 97.8
--- NOTE | 2019-12-06 14:00 | NUR ---
Medicated with Tylenol for discomfort. Turns self frequently in bed. Spouse here.
[2019-12-06 15:15] VITALS: BP 82/48; PULSE 91; TEMP 97.8
[2019-12-06 15:30] VITALS: BP 108/53
--- NOTE | 2019-12-06 18:00 | NUR ---
Has been incontinent of urine several times today. Bladder scan with 1000 ml residual.
--- NOTE | 2019-12-06 20:00 | NUR ---
Report received, assumed care for hourly shift manager. Assessment complete. Alert-not oriented-drowsy. VS stable. No s/s of pain/nausea/shortness of breath. Very restless-currently has a sitter. PICC to right upper arm flushes without difficulty. Call light in reach. Sitter at bedside/bed alarm on. Will monitor.
[2019-12-06 20:18] VITALS: BP 117/78; PULSE 91; TEMP 98
[2019-12-07] VITALS (7 sets, daily range): BP systolic 99–146; BP diastolic 41–90; PULSE 90–109; TEMP 97.6–98.3
--- NOTE | 2019-12-07 00:06 | NUR ---
Very restless-up on all fours in bed-attempting to scoot out of bottom. Moments of combativeness-swinging towards staff. Ativan given per dr order. No s/s of pain noted. Has been incontinent of urine x2 thus far this shift-tea colored/brown. Sitter at bedside. Will monitor.
--- NOTE | 2019-12-07 00:50 | NUR ---
Continues to be very agitated/restless/combative. Geodon given IM per order. Sitter remains at bedside. WIll continue to monitor.
--- NOTE | 2019-12-07 03:40 | NUR ---
Awake-setting off bed alarm. On all fours in bed. Repositioned in bed. Moments of combativeness swinging at staff. Ativan given per dr order. SItter back to bedside.
[2019-12-07 08:03] LABS: BASO # 0.1 (0.0-0.2); BASO % 0.4 % (0.0-2.0); EOS # 0.1 (0.0-0.7); EOS % 0.5 % (0-4.0); GRAN # 11.8 (1.4-6.5); GRAN % 80.6 % (42.2-75.2); HEMOGLOBIN 10.4 g/dl (13.5-18.0); LYMPH # 1.8 (1.2-3.4); LYMPH % 11.9 % (20.0-51.0); MEAN CELL VOLUME 91 fl (80.0-100.0); MEAN CORPUSCULAR HEMOGLOBIN 31 pg (27.0-31.0); MEAN CORPUSCULAR HGB CONC 34 g/dl (33.0-37.0); MEAN PLATELET VOLUME 11.6 fl (7.4-10.4); MONO # 0.9 (0.1-0.6); MONO % 6.3 % (1.7-9.3); PLATELET COUNT 301 K/mm3 (130-400); RED BLOOD COUNT 3.41 M/mm3 (4.20-5.60); REDCELL DISTRIBUTION WIDTH-CV 13.2 % (11.5-14.5)
--- NOTE | 2019-12-07 09:55 | NUR ---
Patient alert, confused. Unable to answer/comprehend questions. Patient actively moving around bed, lays on his side and then goes up on hands and knees Unable to redirect. Attempted to assist patient to bathroom, unable to comprehend. No s/s pain or discomfort noted.
--- NOTE | 2019-12-07 10:08 | NUR ---
DEVI contacted and faxed updates to [facility] and [facility]. Batsheva, at [facility], reports that they do not have a bed available today; but possibly tomorrow. Zara, at [facility], reports that they will give the updates to their doctor and discuss being able to possibly admit the patient today or tomorrow. She states that they will contact SW back when they have an answer. DEVI faxed updates to [facility] and [place] [facility]. DEVI to continue to follow.
--- NOTE | 2019-12-07 12:57 | NUR ---
iXn, at [facility], reports that they are at high acuity right now with their other patient's and would recommend an alternate senior behavioral unit for the patient. SW to continue to follow.
--- NOTE | 2019-12-07 13:59 | NUR ---
Shweta, at [facility], reports that they are declining the patient, due to the potential of them having to place a nguyen cath again. SW to update the patient's and son. SW to continue to follow.
--- NOTE | 2019-12-07 16:13 | NUR ---
Zara, at [facility], reports that they are declining the patient; due to them feeling like he is not medically stable yet. Zara reports that if the patient becomes more stable, then they would reconsider him. SW notified the clinical team. SW updated the patient's and son. SW awaiting response from [facility].
--- NOTE | 2019-12-07 19:10 | NUR ---
Report received, assumed care for evening or night nurse supervisor. Assessment complete. Alert-very restless trying to crawl out the bottom of the bed. No s/s of pain/nausea/shortness of breath. Ativan given per dr order. Repositioned in bed-bed alarm on. Urine continues to be reddish/maris in color. PICC to right upper arm flushes without difficulty. Call light in reach. Bed alarm on. Will monitor.
--- NOTE | 2019-12-08 01:30 | NUR ---
Dr Hawley notified of increased agitation, grimacing, abdominal distension, no void since 0900 and bladder scan of >1605. New orders received to straight cath-total out 1850-bloody. Irrigated with NS-no clots noted. Resting more comfortably now. Will monitor.
[2019-12-08 04:00] VITALS: BP 118/62; PULSE 68; TEMP 98
--- NOTE | 2019-12-08 04:11 | NUR ---
Much more restfull later this shift. No s/s of pain. Received several doses of ativan early in the shift. No void since straight cath but appears much more commfortable. Call light in reach/bed in low/alarm on. Will monitor.
[2019-12-08 06:00] LABS: BASO # 0.1 (0.0-0.2); BASO % 0.4 % (0.0-2.0); EOS # 0.2 (0.0-0.7); EOS % 1.4 % (0-4.0); GRAN # 12.3 (1.4-6.5); GRAN % 77.4 % (42.2-75.2); HEMOGLOBIN 10.5 g/dl (13.5-18.0); LYMPH # 2.3 (1.2-3.4); LYMPH % 14.3 % (20.0-51.0); MEAN CELL VOLUME 90 fl (80.0-100.0); MEAN CORPUSCULAR HEMOGLOBIN 30 pg (27.0-31.0); MEAN CORPUSCULAR HGB CONC 33 g/dl (33.0-37.0); MEAN PLATELET VOLUME 11.8 fl (7.4-10.4); MONO % 6.1 % (1.7-9.3); PLATELET COUNT 325 K/mm3 (130-400); RED BLOOD COUNT 3.49 M/mm3 (4.20-5.60); REDCELL DISTRIBUTION WIDTH-CV 13.2 % (11.5-14.5)
[2019-12-08 06:04] LABS: HEMATOCRIT 31.4 % (42.0-52.0)
[2019-12-08 06:10] LABS: CALCIUM 9.9 mg/dL (8.4-10.2); CREATININE, serum 0.68 (0.66-1.25)
--- NOTE | 2019-12-08 08:00 | NUR ---
Patient drowsy, arouses to verbal stimuli but no conversation. See assessment.
[2019-12-08 10:00] VITALS: BP 106/60; PULSE 76; TEMP 98.1
--- NOTE | 2019-12-08 10:38 | NUR ---
Batsheva, at [facility], reports that they do not have a bed available today. She states that she will know later today after their meeting, when they will have some discharges. DEVI contacted and updated the patient's son, Chito. DEVI then discussed [facility] and [facility]. Chito was agreeable with DEVI sending a referral to [facility]. DEVI contacted and faxed a referral to Jannette at [facility]. SW awaiting their screen.
--- NOTE | 2019-12-08 11:45 | NUR ---
PICC intact right upper arm with sterile dressing change done with insertion site cleansed with chloraprep x 1, chlorhexidine impregnated disk applied, skin prep, stat lock, and tegaderm applied. no signs or symptoms of IV complications noted. no concerns voiced. re-wrapped with boaz to protect catheter.
[2019-12-08 16:08] VITALS: BP 109/70; PULSE 76; TEMP 97.8
--- NOTE | 2019-12-08 16:53 | NUR ---
[facility] and [facility] have a senioral behavioral unit. SW discussed this with patient's son (Chito) and . They were agreeable for SW to send referrals there. SW contacted and faxed a referral to both facilities. SW awaiting their screens.
[2019-12-08 19:21] VITALS: BP 101/54; PULSE 94; TEMP 97.4
--- NOTE | 2019-12-08 20:00 | NUR ---
Pt. laying in bed at this time. Pt. will respond to yes/no questions and is otherwise confused. PICC to rt. upper arm patent. Shrestha catheter to DD, dark red to brown urine noted. Pt. does not appear to be in pain per flacc scale. Bed alarm on.
[2019-12-09 06:22] LABS: BASO % 0.3 % (0.0-2.0); EOS # 0.2 (0.0-0.7); EOS % 1.9 % (0-4.0); GRAN # 9.3 (1.4-6.5); GRAN % 72.6 % (42.2-75.2); HEMOGLOBIN 10.5 g/dl (13.5-18.0); LYMPH # 2.3 (1.2-3.4); MEAN CELL VOLUME 92 fl (80.0-100.0); MEAN CORPUSCULAR HEMOGLOBIN 30 pg (27.0-31.0); MEAN CORPUSCULAR HGB CONC 33 g/dl (33.0-37.0); MONO # 0.9 (0.1-0.6); MONO % 6.8 % (1.7-9.3); PLATELET COUNT 342 K/mm3 (130-400); REDCELL DISTRIBUTION WIDTH-CV 13.6 % (11.5-14.5)
[2019-12-09 06:28] LABS: HEMATOCRIT 32.1 % (42.0-52.0)
[2019-12-09 07:43] VITALS: BP 120/72; PULSE 112; TEMP 97.8
[2019-12-09 12:15] VITALS: BP 112/74; PULSE 78; TEMP 98.2
[2019-12-09 16:25] VITALS: BP 114/79; PULSE 109; TEMP 97.9
--- NOTE | 2019-12-09 16:34 | NUR ---
DEVI staffed with the patient's PA, Soniya. Urology is recommending a nguyen cath for at least two weeks. The patient may tentatively be able to discharge tomorrow, 12/09. DEVI notified [facility], [facility], and [facility]. Batsheva, at [facility], requested updates. DEVI faxed her updates. Zara, at [facility], requested updates. DEVI faxed updates. Lluvia, at [facility], reports that they do not have any beds at this time; but that the patient is on their waitlist. DEVI faxed updates. Gifty, at [facility], requested that SW contact when patient is ready to discharge. DEVI faxed her updates. Tulio, at [facility], reports that they do not have any beds available at this time and won't for a week. DEVI faxed her updates. DEVI updated the patient's son, Chito. SW to continue to follow.
[2019-12-09 19:23] VITALS: BP 115/75; PULSE 96; TEMP 97.7
[2019-12-10 01:23] VITALS: BP 111/61; PULSE 84; TEMP 98.3
[2019-12-10 04:25] VITALS: BP 127/86; PULSE 104; TEMP 97.6
--- NOTE | 2019-12-10 08:00 | NUR ---
Patient in bed resting. Assessment complete. Shrestha to dependent drainage with clear yellow urine in bag.
[2019-12-10 08:22] VITALS: BP 115/68; PULSE 85; TEMP 97.4
--- NOTE | 2019-12-10 09:00 | NUR ---
Spouse at bedside
--- NOTE | 2019-12-10 11:30 | NUR ---
Attempted to help patient eat lunch, refuses at this time. Spouse remains at bedside.
[2019-12-10 12:00] VITALS: BP 102/56; PULSE 78; TEMP 97.2
[2019-12-10] MEDS ORDERED: TYLENOL 325MG325 MG PO (13:45)
[2019-12-10] MEDS ORDERED: FLOMAX 0.40.4 MG/CAP PO (13:45)
[2019-12-10] MEDS ORDERED: B & O SUPP1 SUPP.REC RC (13:45)
[2019-12-10] MEDS ORDERED: COGENTIN 1MG1 MG/TAB PO (13:46)
[2019-12-10] MEDS ORDERED: COLACE 100100 MG/CAP PO (13:46)
[2019-12-10] MEDS ORDERED: SEROQUEL50 MG PO (13:46)
[2019-12-10] MEDS ORDERED: ATIVAN2 MG PO (13:46)
[2019-12-10] MEDS ORDERED: MELATIN 3 MG-11 TAB PO (13:47)
[2019-12-10] MEDS ORDERED: GOOD SENSE400 MG/5 M PO (13:47)
--- NOTE | 2019-12-10 14:00 | NUR ---
Spouse states she was able to get patient to eat some of his lunch.
[2019-12-10 14:18] VITALS: BP 102/56; PULSE 78; TEMP 97.2
--- NOTE | 2019-12-10 15:20 | NUR ---
The hospitalist informed DEVI that the patient is ready to discharge today, 12/09. DEVI contacted Batsheva at [facility]. Batsheva reports that they do not have any beds available today. Gifty, at [facility], reports that they do not have any beds. Jony, at [facility], reports that they will put the patient on their list and have their doctor contact our hospitalist today. The doc-to-doc was done and the hospitalist reports that they are able to accept the patient. Jony, at [facility], then contacted DEVI and reports that they are able to accept the patient today. DEVI informed the patient's , Marilee, and son, Chito. Marilee and Chito are agreeable to the transfer. DEVI presented and read the IM form and [facility] Consent form outloud to Marilee. Marilee verbalized understanding and signed. DEVI provided Marilee with a copy of the IM form. DEVI contacted [facility] and they report that they will be here no later than 1530. DEVI informed Chito Hunt, and the patient's RN. They were all agreeable to the time. The patient is to discharge today, 12/09, to [facility] in [place]. Transportation to be provided by [facility]. No additional needs at this time.
--- NOTE | 2019-12-10 16:12 | NUR ---
Patient discharging with secure transport to [facility]. Patient pivot transfered to wheelchair then vehicle, x 2 assist. Attempted x 2 to call Alisson TURK, report. Shrestha maintained to dependent drainage with clear yellow urine. PICC line discontinued per orders by Mya. Spouse at bedside. no further needs at this time.
--- NOTE | 2019-12-10 16:42 | NUR ---
Report called to Alisson TURK at [facility]
== END 2019-12-10 16:10 | DRG 876 ==
LOC: COL.ER 13:19 → MEDICAL 14:52 → ICU 14:52 → SURG 14:52 → ICU 18:52 → SURG 11-26 20:00
PROVIDERS: Emergency Medicine; Nurse Practitioner Family; Physician Assistant; Student in an Organized Health Care Education/Training Program; ADMIT Hospitalist
PROC: 02HV33Z Insertion of Infusion Device into Superior Vena Cava, Percutaneous Approach (ICD-10-PCS; 2019-11-25)
PROC: 0VT08ZZ Resection of Prostate, Via Natural or Artificial Opening Endoscopic (ICD-10-PCS; 2019-12-02)
PROC: 02HV33Z Insertion of Infusion Device into Superior Vena Cava, Percutaneous Approach (ICD-10-PCS; 2019-12-07)
PROC: 0Y6D0Z1 Detachment at Left Upper Leg, High, Open Approach (ICD-10-PCS; principal; 2019-12-08)
DX: F03.91 Unspecified dementia, unspecified severity, with behavioral disturbance (principal); G93.40 Encephalopathy, unspecified; I73.89 Other specified peripheral vascular diseases; I10 Essential (primary) hypertension; E78.5 Hyperlipidemia, unspecified; J44.9 Chronic obstructive pulmonary disease, unspecified; D50.0 Iron deficiency anemia secondary to blood loss (chronic); F41.9 Anxiety disorder, unspecified; F17.210 Nicotine dependence, cigarettes, uncomplicated; K21.9 Gastro-esophageal reflux disease without esophagitis; M19.90 Unspecified osteoarthritis, unspecified site; R31.9 Hematuria, unspecified; N31.2 Flaccid neuropathic bladder, not elsewhere classified; D64.9 Anemia, unspecified; R51 Headache; D72.829 Elevated white blood cell count, unspecified; N40.1 Benign prostatic hyperplasia with lower urinary tract symptoms; R33.8 Other retention of urine; R00.1 Bradycardia, unspecified; T50.995A Adverse effect of other drugs, medicaments and biological substances, initial encounter; G47.33 Obstructive sleep apnea (adult) (pediatric); Z79.82 Long term (current) use of aspirin; Z91.14 Patient's other noncompliance with medication regimen
CPT/HCPCS: 99223-AI; 99231-AI; 99232-AI; 99233-AI; 99239; A4314; A9585; C1751; G0463; J0360; J0696; J1100; J1630; J1650; J1885; J2060; J2250; J2405; J2704; J3010; J3486; J7030

== ENCOUNTER → 2020-02-11 | Outpatient (CLI) | payer MEDICARE, BC ==
[~2020-02-11] MED LIST: ARICEPT 5MG PO; ATIVAN2 MG PO; B & O SUPP1 SUPP.REC RC; COGENTIN 1MG1 MG/TAB PO; COLACE 100100 MG/CAP PO; FLOMAX 0.40.4 MG/CAP PO; GOOD SENSE400 MG/5 M PO; KLONOPIN 0.5MG0.5 MG PO; MELATIN 3 MG-11 TAB PO; MEVACOR 20M20 MG/TAB PO; NAMENDA5 MG PO; NORVASC 10MG10 MG PO; REMERON45 MG PO; SEROQUEL50 MG PO; TYLENOL 325MG325 MG PO; ZOLOFT 25MG25 MG PO; ZYPREXA2.5 MG PO
[2020-02-11 15:23] LABS: COLLECTION METHOD CLEAN CATCH
[2020-02-11 16:01] LABS: MUCOUS Present /lpf; PH 8 (5-8); SQUAMOUS EPITHELIAL None Seen /hpf; URINE APPEARANCE Hazy; URINE BACTERIA Moderate /hpf; URINE BILIRUBIN Negative (NEGATIVE); URINE BLOOD Negative (NEGATIVE); URINE COLOR Yellow; URINE GLUCOSE Negative (NEGATIVE); URINE KETONE Negative (NEGATIVE); URINE LEUKOCYTE ESTERASE 2+ (NEGATIVE); URINE NITRATE Positive (NEGATIVE); URINE PROTEIN(semi-quant) 1+ (NEGATIVE); URINE UROBILINOGEN Negative (NEGATIVE)
== END ==
LOC: ZLAB.STJ 15:06
PROVIDERS: Urology
DX: N39.0 Urinary tract infection, site not specified (principal)

== ENCOUNTER → 2020-02-25 | Outpatient (CLI) | payer MEDICARE, BC ==
[2020-02-25 17:31] LABS: COLLECTION METHOD CLEAN CATCH
[2020-02-25 18:11] LABS: MUCOUS Present /lpf; PH 8 (5-8); SQUAMOUS EPITHELIAL None Seen /hpf; URINE APPEARANCE Hazy; URINE BACTERIA None Seen /hpf; URINE BILIRUBIN Negative (NEGATIVE); URINE BLOOD Negative (NEGATIVE); URINE COLOR Yellow; URINE GLUCOSE Negative (NEGATIVE); URINE KETONE Negative (NEGATIVE); URINE LEUKOCYTE ESTERASE Negative (NEGATIVE); URINE NITRATE Negative (NEGATIVE); URINE PROTEIN(semi-quant) 1+ (NEGATIVE); URINE RBC 0-2 /hpf; URINE UROBILINOGEN Negative (NEGATIVE)
== END ==
LOC: ZLAB.STJ 16:28
PROVIDERS: Urology
DX: N39.0 Urinary tract infection, site not specified (principal)

== ENCOUNTER 2020-09-24 10:51 | Inpatient (IN) | payer MEDICARE, BC ==
[2020-09-24] VITALS (50 sets, daily range): BP systolic 148–163; BP diastolic 65–90; PULSE 70–84; TEMP 99.2–99.5; O2SAT 99–100
[~2020-09-24] VITALS: Ht 175.3 cm; Wt 79.9 kg
[~2020-09-24 10:51] MED LIST changes: +COGENTIN .0.5 MG/TAB PO; +DESYREL 50MG50 MG PO; +NAMENDA 10MG TA10 MG PO; -NAMENDA5 MG PO; -NORVASC 10MG10 MG PO; +NORVASC2.5 MG PO; +PEPCID40 MG PO; +SENOKOT S 50 MG1 TAB PO; +TYLENOL 500MG500 MG PO; +VOLTAREN GEL 1%1 TU TP; +ZYPREXA 5MG5 MG PO
[2020-09-24 11:09] LABS: HEMATOCRIT 38.7 % (42.0-52.0); HEMOGLOBIN 12.2 g/dl (13.5-18.0); MEAN CELL VOLUME 92 fl (80.0-100.0); MEAN CORPUSCULAR HEMOGLOBIN 29 pg (27.0-31.0); MEAN CORPUSCULAR HGB CONC 32 g/dl (33.0-37.0); MEAN PLATELET VOLUME 11.2 fl (7.4-10.4); PLATELET COUNT 187 K/mm3 (130-400); RED BLOOD COUNT 4.23 M/mm3 (4.20-5.60); REDCELL DISTRIBUTION WIDTH-CV 14.2 % (11.5-14.5)
[2020-09-24 11:18] LABS: PROTHROMBIN TIME 10.7 SECONDS (9.7-12.8)
[2020-09-24 11:19] LABS: ALANINE AMINOTRANSFERASE 22 U/L (4-49); ALBUMIN 4.2 gm/dL (3.5-5.0); ALKALINE PHOSPHATASE 51 U/L (50-136); ANION GAP 12 mmol/L (7-16); AST,SGOT 30 U/L (15-37); BILIRUBIN,TOTAL 0.5 mg/dL (0.0-1.0); BLOOD UREA NITROGEN 21 mg/dL (9-20); CALCIUM 9.2 mg/dL (8.4-10.2); CARBON DIOXIDE 24 mmol/L (22-30); CHLORIDE 108 mmol/L (98-107); CREATININE, serum 0.73 (0.66-1.25); GLUCOSE 116 mg/dL (74-106); LIPASE 78 U/L (23-300); POTASSIUM 3.9 mmol/L (3.4-5.0); SODIUM 143 mmol/L (137-145); TOTAL PROTEIN 7.2 gm/dL (6.4-8.2)
[2020-09-24 11:20] LABS: PARTIAL THROMBOPLASTIN TIME 24.6 SECONDS (26.0-37.0)
[2020-09-24 11:30] LABS: TROPONIN-I < 0.012 ng/mL (0.000-0.035)
[2020-09-24 11:44] LABS: BAND 2 % (0-10); HYPOCHROMIA 2+; LYMPHOCYTE 14 % (20.0-51.0); NEUTROPHILS 76 % (42.0-75.2); PLATELET ESTIMATE NORMAL (NORMAL)
[2020-09-24 13:21] LABS: COLLECTION METHOD IN
[2020-09-24 13:31] LABS: MUCOUS Present /lpf; PH 5 (5-8); SQUAMOUS EPITHELIAL 0-2 /hpf; URINE APPEARANCE Hazy; URINE BACTERIA None Seen /hpf; URINE BILIRUBIN Negative (NEGATIVE); URINE BLOOD Negative (NEGATIVE); URINE COLOR Yellow; URINE GLUCOSE Negative (NEGATIVE); URINE KETONE Negative (NEGATIVE); URINE LEUKOCYTE ESTERASE Negative (NEGATIVE); URINE NITRATE Negative (NEGATIVE); URINE PROTEIN(semi-quant) Negative (NEGATIVE); URINE RBC 0-2 /hpf; URINE UROBILINOGEN Negative (NEGATIVE)
--- NOTE | 2020-09-24 14:00 | NUR ---
Pt arrieved from ED with CorinaRN and Zoila,RT. Pt to ICU bed without difficulty utilizing slideboard. Oral cavity, ETT and ventilator tubing with moderate amount of semi-bright red blood. Oral care provided and face cleaned d/t blood Vital signs stable MD Abdulaziz contacted for orders - and recieved Pt tolerating ventilator with occasional coughing and moving of upper extremities. No eye opening observed. Pupils midline 2mm and sluggish to light
--- NOTE | 2020-09-24 14:30 | NUR ---
Spouse at bedside - MD Mercedes updated spouse - all questions answered. She is not in distress but in obvious emotional pain
--- NOTE | 2020-09-24 15:21 | NUR ---
Respiratory Therapy having difficulty accessing artery for ABG. MD Bubba requesting consent for arterial line insertion and central line insertion. Spouse and son (via telephone) agree to both procedures, and state they are very aware of what an arterial line and central line is because pt has had them in the past. Anesthesia paged by ROSALEE [employer]/production manager imaging
--- NOTE | 2020-09-24 16:10 | NUR ---
REPTILE KEEPER present for arterial line insertion. Pt's spouse Marilee at bedside and remained at bedside during insertion. TimeOut completed - all in agreement. Pt tolerated insertion and securement without difficulty. Waveform accurate and NIBP and arterial BP corresonding.
[2020-09-24 16:47] LABS: ARTERIAL BLD GAS O2 SATURATION 99.3 % (92-100); ARTERIAL BLD GAS TCO2 CT 21.6; ARTERIAL BLOOD GAS BASE EXCESS -1.3 (-2-2); ARTERIAL BLOOD GAS HCO3 20.8 meq/L (22-26); ARTERIAL BLOOD GAS PCO2 27.3 mmHg (35-45)
[2020-09-24 16:54] LABS: ARTERIAL BLOOD GAS PO2 155.3 mmHg (80-100)
--- NOTE | 2020-09-24 19:50 | NUR ---
B/P ARTERIAL ELEVATED 177/67 CONTINUOUS TO 180/72 HYDROLAZINE 10 MG ADMINISTERED IV. AT 2009 PROPFOL INCREASE TO 25 MCQ/KG/MIN
[2020-09-24 20:06] LABS: ARTERIAL BLD GAS O2 SATURATION 98.3 % (92-100); ARTERIAL BLOOD GAS BASE EXCESS 25.9 (-2-2); ARTERIAL BLOOD GAS HCO3 25.9 meq/L (22-26); ARTERIAL BLOOD GAS PCO2 41.6 mmHg (35-45); ARTERIAL BLOOD GAS PO2 117.4 mmHg (80-100); ARTERIAL BLOOD GAS pH 7.41 (7.35-7.45)
[2020-09-25] VITALS (264 sets, daily range): BP systolic 107–175; BP diastolic 41–79; PULSE 62–91; TEMP 99–100.9; O2SAT 97–100
[2020-09-25 05:49] LABS: ARTERIAL BLD GAS O2 SATURATION 98.3 % (92-100); ARTERIAL BLOOD GAS BASE EXCESS -1.3 (-2-2); ARTERIAL BLOOD GAS PO2 113.2 mmHg (80-100); ARTERIAL BLOOD GAS pH 7.46 (7.35-7.45)
[2020-09-25 06:22] LABS: BASO % 0.2 % (0.0-2.0); EOS % 0.1 % (0-4.0); GRAN % 80.5 % (42.2-75.2); HEMOGLOBIN 10.9 g/dl (13.5-18.0); LYMPH # 1.7 (1.2-3.4); LYMPH % 11.3 % (20.0-51.0); MEAN CELL VOLUME 93 fl (80.0-100.0); MEAN CORPUSCULAR HEMOGLOBIN 29 pg (27.0-31.0); MEAN CORPUSCULAR HGB CONC 31 g/dl (33.0-37.0); MEAN PLATELET VOLUME 11.7 fl (7.4-10.4); MONO # 1.1 (0.1-0.6); MONO % 7.4 % (1.7-9.3); PLATELET COUNT 167 K/mm3 (130-400); RED BLOOD COUNT 3.81 M/mm3 (4.20-5.60); REDCELL DISTRIBUTION WIDTH-CV 14.7 % (11.5-14.5)
[2020-09-25 06:26] LABS: HEMATOCRIT 35.6 % (42.0-52.0)
[2020-09-25 06:34] LABS: ALBUMIN 3.5 gm/dL (3.5-5.0); BILIRUBIN,TOTAL 1.5 mg/dL (0.0-1.0); CALCIUM 8.5 mg/dL (8.4-10.2); CREATININE, serum 0.67 (0.66-1.25); MAGNESIUM 2.3 mg/dL (1.6-2.3); POTASSIUM 3.5 mmol/L (3.4-5.0); TOTAL PROTEIN 6.1 gm/dL (6.4-8.2)
--- NOTE | 2020-09-25 10:38 | NUR ---
SW met with patient to complete intake. Patients Caty present up on arrival and completed intake due to patient being intubated. Caty [phone] states that she currently resides in [place], but patient stays in [place] at the [facility]. Spouse provides that patient did not previously utilize a walker nor cane except to get in and out of a vehicle. Spouse provides that at the nurse home he does receive assistace with ADL's, PCP is Dr. Rogers, and pharmacy is [facility]. Spouse provides that she has been appointed as DPOA-HC and documentation present in electronic records. Spouse states that patient will return to the [facility] upon discharge. SW will continue to follow
--- NOTE | 2020-09-25 10:52 | NUR ---
MD Bubba on unit and notified: low priority alarm for low tidal volumes, ETT suctioning with moderate amount of blood. Zoila,RT notified as well. Lovenox to be held. SCD's in place.
--- NOTE | 2020-09-25 11:47 | NUR ---
Tube Feed initiated - 25mL/hr with 100mL water flush q4hr
--- NOTE | 2020-09-25 14:37 | NUR ---
MD Bubba notified: NIBP:155/87 - Art: 190/75 - Temp:100.5-101.9
--- NOTE | 2020-09-25 14:40 | NUR ---
MD Bubba also informed pt still experiencing occasional - with stimulation only - left leg stiffness with tremors; PRN ativan given - tremors subsided and hypertension improved from 190's systolic to 150-160's systolic. MD Bubba ordered for propofol to be increased per protocol to attempt to achieve a dose of 40mcg/kg/min if BP will tolerate. Refer to IV gtt titration documentation. Cardene gtt not initiated but ordered for potential rebound hypertension. MD Mercedes on unit and notified of recent events, no additional orders.
--- NOTE | 2020-09-25 18:04 | NUR ---
Pt's arms and legs tremoring slightly, blood pressure increased from 120's systolic to 165 systolic. PRN ativan administered
[2020-09-25 20:18] LABS: ARTERIAL BLD GAS O2 SATURATION 97.2 % (92-100); ARTERIAL BLD GAS TCO2 CT 22.2; ARTERIAL BLOOD GAS BASE EXCESS -2.3 (-2-2); ARTERIAL BLOOD GAS HCO3 21.2 meq/L (22-26); ARTERIAL BLOOD GAS PCO2 32.5 mmHg (35-45); ARTERIAL BLOOD GAS PO2 84.1 mmHg (80-100); ARTERIAL BLOOD GAS pH 7.43 (7.35-7.45)
--- NOTE | 2020-09-25 21:21 | NUR ---
Patient is resting well. He is on the vent at 30% Fi02; rate of 16, TV 450 and a peep of 5. He is still having some bleeding in the mouth but Repiratory did mouthcare at 1900 and I just completed mouthcare at 2100. He is tolerating the vent well and saturating at 100%. Propofol is at 45 and fentanyl is at 50. His tube feeds are at the starting rate of 25 and 100ml free water Q4h. I checked residuals at 2100 and it was 350. I held the tube feeds and will recheck around 2300.
--- NOTE | 2020-09-25 23:00 | NUR ---
Tube feeding residual was checked and was exactly 250, this is even with holding the tube feeding for the last two hours. I called Sandy COOPER and she said to wait another hour and recheck residuals.
[2020-09-26] VITALS (433 sets, daily range): BP systolic 100–122; BP diastolic 42–67; PULSE 62–74; TEMP 98.1–99.6; O2SAT 86–100
--- NOTE | 2020-09-26 01:42 | NUR ---
Residual check at 1am was still 250. I called Sandy COOPER and she reccomended I call Selena. I spoke to the Physician instructor extension work and she said to hold tube feeding until morning, and to start the patient on D5 NS at 60 cc/hr.
[2020-09-26 05:28] LABS: ARTERIAL BLD GAS O2 SATURATION 97.8 % (92-100); ARTERIAL BLD GAS TCO2 CT 23.8; ARTERIAL BLOOD GAS BASE EXCESS -1.8 (-2-2); ARTERIAL BLOOD GAS HCO3 22.7 meq/L (22-26); ARTERIAL BLOOD GAS PCO2 37.4 mmHg (35-45); ARTERIAL BLOOD GAS PO2 105.7 mmHg (80-100)
[2020-09-26 06:20] LABS: ALBUMIN 3.4 gm/dL (3.5-5.0); BILIRUBIN,TOTAL 2.6 mg/dL (0.0-1.0); CALCIUM 8.4 mg/dL (8.4-10.2); CREATININE, serum 0.76 (0.66-1.25); MAGNESIUM 2.4 mg/dL (1.6-2.3); PHOSPHOROUS 3.4 mg/dL (2.5-4.5); POTASSIUM 3.9 mmol/L (3.4-5.0)
[2020-09-26 06:27] LABS: PRE ALBUMIN 15.1 mg/dL (17.6-36.0)
--- NOTE | 2020-09-26 06:49 | NUR ---
Tube feeds have been held sinve 2100 last night and I checked residual out of curiosity and it's still 250. I also rechecked temp and was 98.9. Patient is resting well. He withdraws to pain. He's on 35 Propofol and 50 fentanyl. His blood pressure is 115/50 via [place]. He still has the D5 NS at 60 cc/hr running. Last blood sugar about an hour ago was 80.
--- NOTE | 2020-09-26 07:10 | NUR ---
Report received from Nella. Pt resting in bed intubated with continuous sedation infusing with RT at bedside. EEG in progress at this time.
--- NOTE | 2020-09-26 07:30 | NUR ---
Report received from Nella
[2020-09-26 09:58] LABS: HEMOGLOBIN 10.3 g/dl (13.5-18.0); MEAN CELL VOLUME 93 fl (80.0-100.0); MEAN CORPUSCULAR HEMOGLOBIN 29 pg (27.0-31.0); MEAN CORPUSCULAR HGB CONC 31 g/dl (33.0-37.0); MEAN PLATELET VOLUME 11.6 fl (7.4-10.4); PLATELET COUNT 149 K/mm3 (130-400); RED BLOOD COUNT 3.54 M/mm3 (4.20-5.60); REDCELL DISTRIBUTION WIDTH-CV 14.9 % (11.5-14.5)
[2020-09-26 10:14] LABS: HEMATOCRIT 32.9 % (42.0-52.0)
[2020-09-26 10:23] LABS: BAND 17 % (0-10); LYMPHOCYTE 10 % (20.0-51.0); NEUTROPHILS 65 % (42.0-75.2); PLATELET ESTIMATE NORMAL (NORMAL)
--- NOTE | 2020-09-26 14:48 | NUR ---
Headliner Installer faxed clinical updates to [facility]. Patient remains intubated at this time.
--- NOTE | 2020-09-26 17:00 | NUR ---
Spouse has remained at bedside with pt this shift. Encouraged to ask questions. Son was put on speaker phone and reviewed questions that were asked to this nurse regarding results of testing and reason for antibiotics. Pt went to MRI, results not discussed at this time. Returned back to ICU05 approximately 1630.
--- NOTE | 2020-09-26 17:00 | NUR ---
Restarted tube feeds per dietary order. 15ml/ hr
--- NOTE | 2020-09-26 19:30 | NUR ---
Report provided to Zina. Reviewed lines and tubes at this time.
[2020-09-27] VITALS (520 sets, daily range): BP systolic 102–160; BP diastolic 41–68; PULSE 63–93; TEMP 97.2–98.8; O2SAT 88–100
[2020-09-27 05:25] LABS: ARTERIAL BLD GAS O2 SATURATION 97.8 % (92-100); ARTERIAL BLD GAS TCO2 CT 25.9; ARTERIAL BLOOD GAS HCO3 24.7 meq/L (22-26); ARTERIAL BLOOD GAS PCO2 40.3 mmHg (35-45); ARTERIAL BLOOD GAS PO2 105.4 mmHg (80-100); ARTERIAL BLOOD GAS pH 7.41 (7.35-7.45)
[2020-09-27 05:51] LABS: BASO % 0.2 % (0.0-2.0); EOS # 0.1 (0.0-0.7); EOS % 0.9 % (0-4.0); GRAN # 8.4 (1.4-6.5); GRAN % 80.3 % (42.2-75.2); LYMPH # 1.2 (1.2-3.4); LYMPH % 11.5 % (20.0-51.0); MEAN CELL VOLUME 95 fl (80.0-100.0); MEAN CORPUSCULAR HGB CONC 32 g/dl (33.0-37.0); MEAN PLATELET VOLUME 12.4 fl (7.4-10.4); MONO # 0.7 (0.1-0.6); MONO % 6.4 % (1.7-9.3); PLATELET COUNT 118 K/mm3 (130-400); RED BLOOD COUNT 3.22 M/mm3 (4.20-5.60); REDCELL DISTRIBUTION WIDTH-CV 15.1 % (11.5-14.5)
[2020-09-27 05:53] LABS: HEMATOCRIT 30.7 % (42.0-52.0); HEMOGLOBIN 9.7 g/dl (13.5-18.0); MEAN CORPUSCULAR HEMOGLOBIN 30 pg (27.0-31.0)
--- NOTE | 2020-09-27 09:21 | NUR ---
MD Wanda talking with pt's spouse and son on telephone regarding transfering to higher level of care. Spouse and son are hesitant, but agree to transfer. Inside Sales Professional and conveyor line battery charger notified
[2020-09-27 09:44] LABS: CALCIUM 8.2 mg/dL (8.4-10.2); CREATININE, serum 0.61 (0.66-1.25); POTASSIUM 3.5 mmol/L (3.4-5.0)
--- NOTE | 2020-09-27 10:31 | NUR ---
Powder Carrier attended clinical rounds with the team. Patient's , Marilee is at bedside and patient's son, Chito is on speakerphone. Hospitalist discussed possible transfer to [facility] and patient's family is open to this. SW will continue to follow.
--- NOTE | 2020-09-27 11:51 | NUR ---
First visit from the mason tender. prayed with patient. No other needs right now.
--- NOTE | 2020-09-27 13:54 | NUR ---
Report called to [facility] Neuro ICU nurse
--- NOTE | 2020-09-27 14:32 | NUR ---
Pt departed with EMS team. Med notifed pt in route
[2020-09-28 20:28] LABS: CK total - for Isoenzymes 645 U/L (39 - 308)
== END 2020-09-27 14:35 | disposition short-term general hospital (02) | DRG 101 ==
LOC: COL.ER 10:51 → ICU 12:36
PROVIDERS: Emergency Medicine; Internal Medicine; Internal Medicine Pulmonary Disease; ADMIT Student in an Organized Health Care Education/Training Program
PROC: 5A1945Z Respiratory Ventilation, 24-96 Consecutive Hours (ICD-10-PCS; principal; 2020-09-24)
PROC: 0BH17EZ Insertion of Endotracheal Airway into Trachea, Via Natural or Artificial Opening (ICD-10-PCS; 2020-09-24)
PROC: 02H633Z Insertion of Infusion Device into Right Atrium, Percutaneous Approach (ICD-10-PCS; 2020-09-26)
DX: G40.901 Epilepsy, unspecified, not intractable, with status epilepticus (principal); F03.91 Unspecified dementia, unspecified severity, with behavioral disturbance; I10 Essential (primary) hypertension; N40.0 Benign prostatic hyperplasia without lower urinary tract symptoms; Z66 Do not resuscitate; T17.998A Other foreign object in respiratory tract, part unspecified causing other injury, initial encounter; B95.61 Methicillin susceptible Staphylococcus aureus infection as the cause of diseases classified elsewhere; N31.2 Flaccid neuropathic bladder, not elsewhere classified; E80.6 Other disorders of bilirubin metabolism; D64.9 Anemia, unspecified; D69.6 Thrombocytopenia, unspecified; Z20.822 Contact with and (suspected) exposure to COVID-19
CPT/HCPCS: 99223-AI; 99232-AI; 99239; A9585; C1751; C9113; C9254; J0330; J0360; J1650; J1940; J1953; J2060; J2543; J2704; J3010; J3480; J7030; J7040; J7042